=== PATIENT | male | born 1970 | race Caucasian/White ===

== ENCOUNTER → 2023-09-25 12:39 | Outpatient (REF) | payer BC, SELFPAY | LOC: HWRAD 12:39 | PROVIDERS: ATTENDING PHYSICIAN Registered Nurse; FAMILY PHYSICIAN Internal Medicine | DX: J18.9 Pneumonia, unspecified organism (principal) | CPT/HCPCS: 71046 ==

== ENCOUNTER 2024-08-31 09:22 | Inpatient (IN) | payer BC, SELFPAY ==
[2024-08-31] VITALS (18 sets, daily range): BP systolic 100–139; BP diastolic 46–92; PULSE 27; BMI 31.5
[2024-08-31] MEDS: ATROPINE 0.1 MG/ML SYRINGE 1 MG IV ×2 (07:18→07:26)
--- NOTE | 2024-08-31 07:25 | ED.GENMED ---
History of Present Illness
General
Chief Complaint: Heart Rate Problem
Source: patient and ambulance crew
Exam Limitations: none
Time Seen by Provider: 08/31/24 07:24
Nursing documentation reviewed up to this point in time: agreed with
History of Present Illness
History of Present Illness:
54-year-old male presents emergency room via EMS due to syncope episode when he went to the bathroom. He had some chest tightness that went away, but does not feel good, and felt diaphoretic. EMS performed EKG with heart rate in the 30s revealing
complete heart block. He has not take any medications, except for an inhaler. EKG sent via EMS, cardiology contacted prior to patient's arrival.
Past History
Past History
ED Past Medical History: Asthma; Negative IDDM
ED Past Surgical History: Negative Cardiac
Social History
Tobacco: Non-smoker
Alcohol: None
Drug: None
Personal:
Living: with family
Employment: Employed
Family History
Family History: Other
Review of Systems
Review of Systems
Allergies reviewed?: Yes
All Other Systems: Not applicable
Constitutional: Reports no symptoms
EENT: Reports no symptoms
Respiratory: Reports no symptoms
Cardiac: Reports chest pain, diaphoresis and syncope
ABD/GI: Reports no symptoms
: Reports no symptoms
Musculoskeletal: Reports no symptoms
Skin: Reports no symptoms
Neurological: Reports no symptoms
Endocrine: Reports no symptoms
Hematologic/Lymphatic: Reports no symptoms
Psychiatric: Reports no symptoms
Phy Exam
Physical Exam
Physical Exam:
Physical Exam
General: Appears uncomfortable
Neck: supple. no meningeal signs. normal posterior pharynx
Heart: s1/s2 , bradycardia, no murmur. equal radial
pulses.
HEENT: Pupils equal round reactive to light, EOMI
Lungs: no acute respiratory distress. clear bilaterally
Abdomen: normal bowel sounds. not tender. no CVAT
Neuro: alert and oriented. no focal neurological deficits cranial nerves II through XII intact
Skin: no rash
Psychiatric: well kept. interactive and cooperative
Extremities: no edema. no calf tenderness. negative homans. good distal pulses
Course
Orders/Labs/Results
Orders:
Orders
08/31/24 07:14
EKG [Electrocardiogram (*1)] Stat
Reason for Study: Bradycardia / Tachycardia
EKG- Treatment ONCE
08/31/24 07:25
Atropine Sulfate [Atropine 0.1 mg/ml Syringe] 1 mg IV NOW STA
Atropine Sulfate [Atropine 0.1 mg/ml Syringe] 1 mg IV NOW STA
08/31/24 07:26
DOPamine 400 MG/D5W 250 ML [DOPamine 400 MG] 400 mg in 250 ml IV NOW
Initial dose in mcg/kg/min, then titrate:: 5
Titrate to keep:: Heart Rate
Keep Heart Rate (bpm) greater than:: 50
Titrate by mcg/kg/min:: 1-2 mcg/kg/min
Frequency of titrations (minutes):: 15
Maximum dose in ICU in mcg/kg/min:: 20
Maximum dose in IMU in mcg/kg/min:: 10
Begin to taper infusion when:: Remained at goal for 4hrs
Taper by mcg/kg/min:: 1-2 mcg/kg/min
Frequency of taper (minutes) if patient maintains goal:: 30
Taper to off?: Yes
If infusion off & no longer maintaining goal:: Contact Provider
08/31/24 07:33
Complete Blood Count/With Diff Urgent
Comprehensive Metabolic Panel Urgent
Magnesium Urgent
PTT Urgent
TSH Urgent
Troponin I Urgent
08/31/24 07:41
Heparin 1000 Units/500 ml [Heparin] 1,000 units in 500 ml .ROUTE .STK-MED
Heparin Sodium,Porcine/Ns/Pf [Heparin 2000 Units/1000 ml] 2,000 unit in 1,000 ml .ROUTE .STK-MED
Lidocaine HCl/Pf [Xylocaine-Mpf 1% Vial] 100 mg .ROUTE .STK-MED ONE
08/31/24 07:44
Aspirin Chewable [Low Strength Aspirin] 324 mg .ROUTE .STK-MED ONE
08/31/24 07:47
Aspirin Chewable [Low Strength Aspirin] 324 mg PO NOW STA
Aspirin Chewable [Low Strength Aspirin] 81 mg .ROUTE .STK-MED ONE
08/31/24 07:50
Fentanyl Citrate/Pf [Sublimaze] 100 mcg .ROUTE .STK-MED ONE
Heparin 10,000 units .ROUTE .STK-MED ONE
Midazolam HCl [Versed] 2 mg .ROUTE .STK-MED ONE
08/31/24 08:08
Nitroglycerin [Tridil] 1,500 mcg .ROUTE .STK-MED ONE
Verapamil Injectable [Isoptin/Verapamil Injection] 5 mg .ROUTE .STK-MED ONE
Abnormal Lab Results
08/31/24
07:33
Abs Immat Gran (auto) 0.1 H 10^3/uL
(0-0.05)
Absolute Neuts (auto) 6.8 H 10^3/uL
(1.4-6.5)
Absolute Monos (auto) 0.7 H 10^3/uL
(0.1-0.6)
APTT 22.9 L Sec
(23.4-35.0)
Potassium 3.4 L mmol/L
(3.5-5.1)
Glucose 180 H mg/dl
(70-99)
ALT 55 H U/L
(0-50)
08/31/24 07:33
08/31/24 07:33
Vital Signs
Initial and Last Documented VS:
Initial Vital Signs
Temp Pulse Resp BP Pulse Ox
97.8 F 32 18 100/60 99
08/31/24 07:15 08/31/24 07:15 08/31/24 07:15 08/31/24 07:15 08/31/24 07:15
Last Documented Vital Signs
Temp Pulse Resp BP Pulse Ox
97.8 F 32 18 118/50 99
08/31/24 07:15 08/31/24 07:15 08/31/24 07:15 08/31/24 07:47 08/31/24 07:47
MDM/Problems Addressed
Differential Diagnosis Includes:
Complete heart block, LA
MDM/Problems Addressed:
54-year-old male with complete heart block, dopamine drip, pacer pads in place. Multiple doses of atropine given without effect. Discussed with Dr. Foster, who took patient to Computer Programming Professor for transvenous pacemaker, with plans to place permanent
pacemaker later today.
*Pulse Oximetry
Patient hypoxic: no
*EKG
Interpreted by ED Provider?: Yes
EKG Intrepretation Date: 08/31/24
EKG Intrepretation Time: 07:16
Interpretation: abnormal
Comparison EKG: no comparison EKG present
Heart Rate: 28
Rate: bradycardiac
Rhythm: sinus tachycardia (with complete heart block)
[place]: normal axis
Interval: normal interval
QRS Pattern: right bundle branch block and other (LAFB)
Ischemia: non-specific ST changes
*Director Of National Sales Interpretation
Rate: bradycardiac
Interpretation: abnormal
Heart Rate: 30
Rhythm: sinus tachycardia (with complete heart block)
*Critical Care Note
Total Time (30-74mins, 75-104mins- exclusive of procedures): 30
comment:
Critical care statement: A total of 30 minutes of critical care time was provided for this patient. This includes management of unstable vital signs, evaluation of the patient at bedside, reviewing the patient's pertinent medical records, discussion
with consultants, review of old EKGs and review of pertinent medical records. This time with separate from time utilized to perform the aforementioned documented procedures
Patient Management
Social determinants of health affecting care: Living situation and Strong social support
Discussion with other providers: Personal Banker (cardiology Dr. Aguilar and Dr. Foster)
Escalation/DeEscalation of care consider admission/obs:
admit for pacemaker
ED Attending Note
-
Portions of this chart may have been created with voice recognition software.� Occasional wrong word or��sound alike� substitutions may have occurred due to the inherent limitations of voice recognition software.
Discharge Plan
Departure
Patient Disposition: CAN STERILIZER
Date of Disposition: 08/31/24
Time of Disposition: 07:27
Admit to: r and d lab technician
Presentation/result/management discussed w/ accepting MD/DO: Lauren, tooth cutter pinion
Patient with high blood pressure during this ER visit?: No
Condition: Serious
Discharge Problem:
Complete heart block
Prescriptions:
No Action
fluticasone propion-salmeterol [Advair Diskus] 100-50 mcg/dose blister with device
1 inh INHALATION R BID
Referrals:
UNKNOWN - PT NOT,INTERVIEWE [Family Provider] -
Interventions
Interventions:
*Risk Screen - Suicide Last Done: 08/31/24 07:15
*General Assessment Last Done: 08/31/24 07:15
*Neglect/Abuse Screening Last Done: 08/31/24 07:15
*ED COVID-19 Vaccine History Last Done: 08/31/24 07:29
Discharge Date and Time
Print Language: MONGOLIAN
[2024-08-31] MEDS: DOPamine 400 MG 250 IV (07:34)
[2024-08-31] MEDS: LOW STRENGTH ASPIRIN 324 MG PO (07:48)
[2024-08-31 07:50] LABS: % Basophils 0.6 % (0-2); % Eosinophils 1.9 % (0-6); % Immature Granulocytes 0.5 % (0-0.5); % Lymphocytes 23.3 % (20.5-51.1); % Monocytes 7.2 % (1.7-9.3); % Neutrophils 66.5 % (42.2-75.2); Absolute Basophils 0.1 10^3/uL (0-0.2); Absolute Eosinophils 0.2 10^3/uL (0-0.7); Absolute Immature Granulocytes 0.1 10^3/uL (0-0.05); Absolute Lymphocytes 2.4 10^3/uL (1.2-3.4); Absolute Monocytes 0.7 10^3/uL (0.1-0.6); Absolute Neutrophils 6.8 10^3/uL (1.4-6.5); Hematocrit 42.8 % (39.0-52.0); Hemoglobin 14.9 g/dL (13.0-18.0); Mean Corp Hgb Conc. 34.8 g/dL (33.0-37.0); Mean Corpuscular Hgb 29.8 pg (27.0-31.0); Mean Corpuscular Volume 85.6 fL (80.0-94.0); Mean Platelet Volume 10.2 fL (7.4-10.4); Nucleated Red Blood Cells % 0 % (-); Platelet Count 299 10^3/uL (130-400); Red Cell Dist. Width 12.3 % (11.5-14.5); White Blood Cell Count 10.2 10^3/uL (4.8-10.8)
[2024-08-31 07:59] LABS: APTT 22.9 Sec (23.4-35.0)
[2024-08-31 08:09] LABS: ALT (SGPT) 55 U/L (0-50); AST (SGOT) 45 U/L (17-59); Albumin 4.9 g/dl (3.5-5.0); Alkaline Phosphatase 63 U/L (38-126); Blood Urea Nitrogen 19 mg/dl (9-20); Calcium 9.3 mg/dl (8.4-10.2); Carbon Dioxide 23 mmol/L (22-30); Chloride 102 mmol/L (98-107); Estimated Creatinine Clearance 83 ml/min; Glucose 180 mg/dl (70-99); Magnesium 2.2 mg/dl (1.6-2.3); Potassium 3.4 mmol/L (3.5-5.1); Sodium 138 mmol/L (135-145); Total Bilirubin 0.8 mg/dl (0.2-1.3); Total Protein 7.6 g/dl (6.3-8.2); eGFR > 60.00
[2024-08-31 08:20] LABS: Troponin I < 0.012 ng/ml
--- NOTE | 2024-08-31 08:29 | HPS.HSE ---
Family Physician
-
Family Physician: Shante Rod NP
Cardiology: None prior to admission, will follow with Dr. Foster/ISMAEL
Chief Complaint
-
dizziness, chest pain
History of Present Illness
54 y/o white male, PMH asthma, anxiety, herpes simplex. Non smoker, social drinker. Father has PPM placed approx 15 years ago for what he says was bradycardia.
Pt presented to ER this morning via EMS after a near syncopal event in the bathroom. Recent history is that he decided to exercise last evening, and developed some chest pressure/muscle aches after he was done. This lasted approx 30-40 mine and
resolved. This morning, he walked to the bathroom and was very dizzy and lightheaded, some associated nausea, unable to stand, collapsed to his knees. He did not lose consciousness but felt that he was close. EMS was called and EKG revealed complete
heart block. He was brought to ED. Troponin normal, mild hypokalemia (3.4) and hyperglycemia (180) but labs otherwise WNL. He was brought urgently to laboratory analyst for angiography and possible temp wire placement.
Medical History
Past Medical History
Past Medical History: Reports Asthma
Additional Past Medical History:
Anxiety, herpes simplex
Past Surgical History: Reports Other
Additional Past Surgical History:
Left inguinal hernia repair (2012), Vasectomy (2011)
Social History
Tobacco: Non-smoker
Alcohol: Occasional
Drug: None
Personal:
Living: With Family
Employment: Employed
Family History
Family History: Cancer, Hypertension and Other (hyperlipidemia; Father- SSS/bradycardia with PPM implant about 15 yrs ago)
Allergies / Home Medications
Allergies reflects when Allergies were last updated in [email or web address].
Home Medications with original date entered in [email or web address]
Allergy/Medication List:
Allergies
Allergy/AdvReac Type Severity Reaction Status Date / Time
No Known Allergies Allergy Verified 08/31/24 07:27
Home Medications
�Medication �Instructions �Recorded
fluticasone 100 mcg-salmeterol 50 1 inh inhalation R BID 08/31/24
mcg/dose blistr powdr for
inhalation (Advair Diskus)
Review of Systems
-
History Source: Patient
A 12 point ROS was completed and negative except as noted: Yes
Abdomen/GI: Reports Nausea
Neurological: Reports Dizzy and Weakness
Physical Exam
Vital Signs
Vital Signs
Temp Pulse Resp BP Pulse Ox
97.8 F 32 18 118/50 99
08/31/24 07:15 08/31/24 07:15 08/31/24 07:15 08/31/24 07:47 08/31/24 07:47
Physical Exam
General: Well Developed and No Apparent Distress
HEENT: NormoCephalic
Respiratory: Clear and Non Labored Respirations
Cardiac: S1/S2 and Bradycardia
GI: Soft and Non Tender
Musculoskeletal: No Edema
Skin: Warm and Dry
Neuro: AO x 3
Laboratory Results
-
08/31/24 07:33
08/31/24 07:33
Laboratory Results
APTT 22.9 Sec (23.4-35.0) L 08/31/24 07:33
Total Bilirubin 0.8 mg/dl (0.2-1.3) 08/31/24 07:33
AST 45 U/L (17-59) 08/31/24 07:33
ALT 55 U/L (0-50) H 08/31/24 07:33
Alkaline Phosphatase 63 U/L (38-126) 08/31/24 07:33
Troponin I < 0.012 ng/ml 08/31/24 07:33
Data Reviewed
-
Medical Tests (Nuc Med, Echo, EKG etc): Image Personally Visualized and interpreted, Report Reviewed by me and Discussed with Physician
Lab Data: Labs Reviewed by me
Old Records: Reviewed
Impression/Plan
-
PCP: Shante Rod NP
CDY: none prior to admission, to follow with ISMAEL/Rasta Foster MD
54 y/o white male, PMH asthma, anxiety, herpes simplex. Non smoker, social drinker. Father has PPM placed approx 15 years ago for what he says was bradycardia.
Pt presented to ER this morning via EMS after a near syncopal event in the bathroom. Recent history is that he decided to exercise last evening, and developed some chest pressure/muscle aches after he was done. This lasted approx 30-40 mine and
resolved. This morning, he walked to the bathroom and was very dizzy and lightheaded, some associated nausea, unable to stand, collapsed to his knees. He did not lose consciousness but felt that he was close. EMS was called and EKG revealed complete
heart block. He was brought to ED. Troponin normal, mild hypokalemia (3.4) and hyperglycemia (180) but labs otherwise WNL. He was brought urgently to laboratory analyst for angiography and possible temp wire placement.
IMPRESSION:
Near Syncope
Complete heart block
Chest pain
Hypokalemia
Hyperglycemia
Asthma
Anxiety
Herpes Simplex
PLAN:
Urgent C to eval for CAD
Likely temp wire for now and possible pacemaker implant later today
Check TSH, Lyme Titer
Echo today
Cardiac MRI today
monitor on tele
replace K post cath
check HgbA1C in AM- elevated glucose noted
followup at [facility] at d/c
[2024-08-31 08:39] LABS: TSH 1.67 uIU/ml (0.47-4.68)
--- NOTE | 2024-08-31 08:53 | ITS.CL.CATH ---
[employer] Worker - Catheterization
Cardiac Catheterization
Procedure Report:
LEFT HEART CATHETERIZATION
Date of Procedure: August 31, 2024
Referring: [facility] Emergency Department
PROCEDURES:
1. Venous access with placement of a 7 Turkmen sheath using ultrasound guidance
2. Left heart catheterization with coronary and single-plane left ventriculography
INDICATION: This is a 54-year-old gentleman with no prior cardiac history who presented to [facility] with a very unusual story. He reports that he was in his normal state of health throughout the day prior to admission. Last evening he
exercised with some free weights and after exercising noted a sensation in his chest like a muscle ache or pull. He awoke this morning his chest discomfort had completely resolved, however, he felt quite poorly and was nauseated and diaphoretic.
He went to the restroom and was weak falling to the ground and unable to stand. He was somewhat disoriented and called for his who called 911. His prehospital electrocardiogram was notable for complete heart block. Upon arrival to the
emergency department he received atropine. Given the history of chest discomfort like a muscle strain, the decision was made to refer for coronary angiography and possible temporary wire placement for management of complete heart block.
ACCESS: Right radial artery, 6 Turkmen sheath using ultrasound guidance and 7 Turkmen right common femoral venous sheath.
Ultrasound was utilized for vascular access. The radial artery was visualized under ultrasound, and the vessel was patent and pulsatile. An image was stored permanently in the patient's medical record. Under direct ultrasound guidance, a 6 Turkmen
sheath was inserted into the artery using a micropuncture kit through a modified Seldinger technique. Ultrasound guidance was then utilized to obtain access in the right common femoral vein and a 7 Turkmen sheath was inserted
HEMODYNAMICS : (mmHg): NOTE patient
AO (s/d) : 99/70
LV (s/d) : 123/12
LVEDP : 17
CORONARY FINDINGS
DOMINANCE: Right
LEFT MAIN: Normal
LEFT ANTERIOR DESCENDING: The LAD arises normally from the left main and runs in the anterior interventricular groove. The LAD is widely patent but tapers to a small caliber vessel as it approaches the apex.
CIRCUMFLEX: The circumflex is a medium caliber nondominant vessel supplying a single large bifurcating obtuse marginal branch and terminating in a small distal obtuse marginal branch. Only minor irregularities are noted.
RIGHT CORONARY ARTERY: The right coronary artery is a dominant vessel that is widely patent over its course. The PDA is patent. The posterolateral branch is large and patent
VENTRICULOGRAPHY: Left ventriculography was performed in an BERKOWITZ projection. The digital single-plane left ventricular ejection fraction is visually estimated at 50% with no regional wall motion abnormalities
RADIATION SUMMARY: Fluoro Time (min): 8.4, Dose (mGy): 401.6, DAP (Gy.cm2) : 38.5
Closure Device: TR band, right radial artery and manual pressure for right common femoral vein
CONCLUSIONS
1. Nonobstructive coronary disease
2. Complete heart block : Currently conducting 1:1
RECOMMENDATIONS
1. Discussed with Dr. Gerard. Will check TSH, Lyme titer, echocardiogram, and cardiac MRI for structure and function.
Copy to: Dr. Rao Foster, REYES Dalal
[2024-08-31] MEDS: ATIVAN 0.5 MG PO (11:42)
--- NOTE | 2024-08-31 11:45 | PTCARENOTE ---
Rec'd pt from manager labor delivery. AOX3 and pleasant. Tele- SR w/ BBBC. Pt has no complaints at this time. Activity restrictions verbalized to pt. Verbalizes understanding. R nacho and R angelia are c/d/i. OOB w/ RN assist. Pt tolerated. Oriented to room. Call
scar w/in reach.
[2024-08-31 11:54] LABS: Troponin I 0.026 ng/ml
--- NOTE | 2024-08-31 12:36 | CM ---
Chart reviewed. Patient is independent of ADLS, lives with his in a 2 [address], 0 VLADIMIR, 0 DME. Plan is for the patient to return home. CM to follow
--- NOTE | 2024-08-31 12:51 | PTCARENOTE ---
PO Ativan administered to pt pre MRI. Pt sent down to MRI via stretcher. Pt unable to complete MRI d/t anxiety. Pt returned to floor and reports that he had 'a bad experience as a kid feeling claustrophobic.'
[2024-08-31] MEDS: TYLENOL 650 MG PO ×2 (13:17→20:55)
--- NOTE | 2024-08-31 14:27 | W.PN.UPDATE ---
Update Note
Progress Note Update
Had a detailed discussion with patient and regarding his paroxysmal AV block. He had approximately 3 hours of symptoms which correlates to complete heart block and a right bundle branch escape in the low 30s. He had spontaneous recovery of
conduction and left heart catheterization demonstrating normal coronaries and normal ejection fraction on LV gram. He does have an echo pending today. Unfortunately he cannot tolerate MRIs throughout his lifetime and again today despite attempts
at sedation. I offered him another chance to try tomorrow with an increased dose of Ativan and he tells me he would not be able to tolerate and as such we deferred on proceeding for retry at the MRI. At this point I would like to perform
diagnostic workup to rule out viral myocarditis or sarcoidosis but some of these tests would then need to be performed as an outpatient with cardiac PET. We will send a serum RONA level, Lyme titer, TSH although I think he has a very low likelihood
of having systemic borreliosis. Reviewed his prior chest x-ray from greater than 1 year ago without evidence of hilar lymphadenopathy.
-Will check echo today to assess EF.
I described pacemaker implantation at the left side to patient and in detail including a 1 of thousand risk of [place] stroke and a 1% risk of pneumothorax tamponade infection or bleeding. Both are amenable to proceed to procedure tentatively
can consider Friday to Friday timeframe depending upon results of workup. We also discussed in detail that given he has paroxysmal AV block it is possible that he will not require pacing or only minimal pacing for quite some time. He
understands and agrees to proceed and we tentatively placed him on the schedule for tomorrow for dual-chamber pacemaker implantation. I took time to answer all questions of patient and .
[2024-08-31] MEDS: KCL 40 MEQ PO (14:53)
[2024-08-31 17:59] LABS: Troponin I 0.032 ng/ml
--- NOTE | 2024-08-31 21:15 | PTCARENOTE ---
Rec'd pt at change of shift. Pt AAO*3, in SR with RBBB on TELE monitor, and VSS. Pt reported mild headache and PRN Tylenol given as ordered. Pt agreed to NPO status at midnight. Pt resting with call abbott in reach. Plan of care ongoing.
See MAR and pt flowchart for full assessment and pt care.
[2024-08-31 23:11] LABS: Troponin I 0.036 ng/ml
[2024-09-01] VITALS (11 sets, daily range): BP systolic 130–147; BP diastolic 79–99; BMI 30.8
[2024-09-01] MEDS: NON-FORMULARY ITEM INH (00:44)
[2024-09-01 06:09] LABS: Hematocrit 40.6 % (39.0-52.0); Hemoglobin 14.1 g/dL (13.0-18.0); Mean Corp Hgb Conc. 34.7 g/dL (33.0-37.0); Mean Corpuscular Hgb 29.7 pg (27.0-31.0); Mean Corpuscular Volume 85.7 fL (80.0-94.0); Mean Platelet Volume 10.3 fL (7.4-10.4); Platelet Count 211 10^3/uL (130-400); Red Blood Cell Count 4.74 10^6/uL (4.70-6.10); Red Cell Dist. Width 12.2 % (11.5-14.5); White Blood Cell Count 5.9 10^3/uL (4.8-10.8)
[2024-09-01 06:37] LABS: Troponin I 0.035 ng/ml
[2024-09-01 06:38] LABS: Blood Urea Nitrogen 15 mg/dl (9-20); Calcium 9.4 mg/dl (8.4-10.2); Carbon Dioxide 24 mmol/L (22-30); Chloride 105 mmol/L (98-107); Estimated Creatinine Clearance 110 ml/min; Glucose 112 mg/dl (70-99); HDL Cholesterol 41 mg/dl; LDL Cholesterol, Calculated 107 mg/dl; Potassium 4.3 mmol/L (3.5-5.1); Sodium 138 mmol/L (135-145); Total Cholesterol 174 mg/dl (50-199); Triglyceride 134 mg/dl (10-149); Very Low Density Lipoprotein 26 mg/dl (0-30); eGFR > 60.00
[2024-09-01] MEDS: NON-FORMULARY ITEM 1 MCG INH (07:40)
[2024-09-01 09:27] LABS: Glycohemoglobin (HgbA1c) 5.5 % (4.0-5.6)
[2024-09-01] MEDS: TYLENOL 650 MG PO ×2 (09:52→18:05)
--- NOTE | 2024-09-01 11:56 | PTCARENOTE ---
Pt is AOx3, complains of headache, given PRN medication as ordered. Independent OOB. SR on tele monitor, VSS. NPO for PPM today. Call abbott within reach.
--- NOTE | 2024-09-01 12:35 | W.PN.UPDATE ---
Update Note
Progress Note Update
Briefly, patient is very pleasant 54-year-old male with a past medical history significant for asthma, anxiety who presented with sensation of lightheadedness, dizziness, nausea, mild shortness of breath. There was no reported loss of consciousness
by patient or documentation. Patient was noted to be in complete heart block. Patient symptoms correlated with his complete heart block. Patient has baseline right bundle branch block and left anterior fascicular block. Patient had spontaneous
return of AV synchrony. Patient is not on any AV nisha blocking agents. Patient has no family history of sudden cardiac , channelopathy. Patient underwent left heart catheterization which demonstrated nonobstructive coronary disease.
Patient underwent echocardiogram which demonstrated normal heart function, mild LVH, normal RV size and function, no significant valvular disease, mildly dilated aortic root. No regional wall motion abnormalities were noted. Patient was scheduled
for cardiac MRI however patient unable to tolerate cardiac MRI. Patient had thorough discussion as documented by Dr. Corbin Gerard regarding the importance of cardiac MRI for assessment of scar and other possible etiology for paroxysmal complete
heart block. Patient reported unable to tolerate and refusing test. Lab work including Lyme titer ordered as well as RONA level which are currently pending. Per discussion with Dr. Gerard, patient planned for elective outpatient PET scan. In the
short-term, due to patient's symptomatic paroxysmal complete heart block, patient to benefit from implantation of a dual-chamber pacemaker. Conduction disease likely infranodal making likelihood of worsening complete heart block possible.
Additionally, patient has baseline conduction disease with a right bundle branch block and left anterior fascicular block. Following discussion regarding disease process, we discussed pacemaker implantation. We discussed pacemaker indications and
device implant in detail. For implant there is an approximate 1:1000 risk of [place]/stroke/ and a 1% risk of pneumothorax/tamponade/infection/bleeding. We also discussed post procedure implant restrictions including positions to avoid with implant
arm for first six weeks after implant as well as driving restrictions. Patient and verbalized understanding and agreed with plan. We discussed that at this current juncture, there appears to be no indication for increased sudden cardiac
risk given available testing and lack of MRI and patient may develop need for upgrade of device in the future, patient and verbalized understanding and agreed with this plan. I took time to answer all questions. Patient remains n.p.o.,
consent form signed.
--- NOTE | 2024-09-01 15:35 | PTCARENOTE ---
Pt left for shop laborer for PPM. Report given to shop laborer RN. at bedside.
--- NOTE | 2024-09-01 17:38 | PTCARENOTE ---
Pt returned from clinical laboratory technician. Left arm immbolizer in place and dressing CDI. pt educated on restrictions and expected OOB time. updated and at bedside. Call abbott within reach.
--- NOTE | 2024-09-01 18:15 | ITS.CL.PACE ---
Supervisor Tubing - Pacemaker Implant
Pacemaker Implant
Procedure Report:
Primary Care: Shante Rod NP
Primary Traffic Control Operator: Dr Foster/ISMAEL
Procedure Date: 09/01/2024
Name of procedure:
1. Placement of a dual-chamber pacemaker with left bundle area pacing lead for conduction system pacing
2. Subclavian venography
History:
1. Patient is a pleasant 54-year-old male without a significant past medical history aside from asthma and anxiety who experienced paroxysmal complete heart block. Patient has a right bundle branch block and left anterior fascicular block.
2. Please refer to H&P for complete history.
Indication:
Symptomatic paroxysmal complete heart block
Methods:
After informed consent was obtained, the patient was brought to the EP laboratory in a postabsorptive, nonsedated state. Peripheral IV access was established. Prophylactic antibiotics were administered prior to incision. Continuous ECG, blood
pressure, and pulse oximetry were initiated. Cardioversion patch electrodes were placed on the patient's chest and back. A grounding patch was applied to the skin. Sedation was administered by anesthesia services.
In order to define the extrathoracic portion of the subclavian vein and exclude significant venous obstruction or anomalous anatomy, subclavian venography was performed prior to the procedure. Using the patient's left peripheral IV, contrast was
injected and images were recorded. The left subclavian vein and SVC were found to be widely patent.
The left chest was prepared and draped in a sterile fashion. A time-out was performed. Local anesthesia was injected in the subcutaneous tissue in the infraclavicular area. An incision was made medial to the deltopectoral groove. The subcutaneous
tissue was dissected the level of the prepectoral fascia. A subcutaneous pocket was created. Under fluoroscopic guidance and with the assistance of the images from the venogram, 2 separate venipunctures were made using micropuncture and modified
Seldinger technique. These were performed in the extrathoracic portion of the subclavian vein. Guidewires were passed and two peel-away sheaths were placed, and used to advance leads into the circulation.
Fluoroscopy was used to determine likely anatomic site for left bundle branch pacing. The Medtronic C315 sheath was used to deliver the Medtronic 3830 Selectsecure pacing lead with the helix exposed just exposed from the sheath tip during continuous
monitoring when pacemapping the septum during gentle clockwise rotation to obtain a paced QRS morphology of a W pattern in lead V1. Once the suspected optimal site was identified, lead deployment was performed with several rapid rotations as paced
QRS morphology was intermittently monitored until a paced QRS complex in lead V1 demonstrated development of an R wave (qR or rSR). Unipolar pacing impedance dropped by approximately 100-200 ohms suggesting it had reached the left ventricular
subendocardial. Stable VEgm injury current is present throughout lead position and at end of case. Final unipolar pacing impedance is 1060 Ohms. Unipolar pacing threshold is stable at 1.0 V @ 0.4 ms. The patient had pre-existing right bundle branch
block morphology at baseline. Final conduction system paced QRS complex duration is 131 ms, LVAT is 58 ms, and peak V5 -> peak V1 timing is 69 ms. The C315 sheath was slit under fluoroscopy ensuring lead position and stability.
Next, the right atrial lead was positioned in the right atrial appendage. Adequate sensing and pacing parameters were found, and no diaphragmatic stimulation was seen with high-output pacing. Both sheaths were split, and the leads were secured to
the fascia with Ethibond ties.
The pocket was flushed with antibiotic solution and hemostasis was assured. The generator was connected to the leads and placed inside the pocket. The device was sutured to the fascia. Antibiotic envelope was used. Floseal was applied. The wound
was closed with 3 running layers of absorbable suture, and steri-strips were applied. Dressing applied over steri-strips in standard fashion.
Following the procedure, the patient was taken to the recovery area in stable condition. A chest x-ray to be obtained post procedure as routine.
Lead parameters and device programming:
- RA Lead (Medtronic, Model 5076, # [id number]): Sensing 4.6 mV, Pacing threshold 0.5 V at 0.4 ms, Imp 495 ohm
- RV Lead (Medtronic, Model 3830, #[id number]): Sensing 4.0 mV (bipolar), Pacing threshold 0.75 V at 0.4 ms, Imp 850 ohm
- Device: Medtronic, Model W1DR01 pacemaker (#[id number]), programmed [id number]�[id number], mode switch on, lower rate 60, upper tracking rate 130 ppm
Conclusions:
1. Successful placement of a dual-chamber pacemaker with conduction system pacing (LBBAP)
2. Subclavian venography
Recommendations:
1. Return to patient room
2. Chest x-ray this evening, [facility] in a.m.
3. IV antibiotics while the patient is admitted.
4. OK to resume home medications as indicated
5. Pressure dressing to be removed in AM, aquacell to remain until wound check
6. Follow-up will be arranged in the office in 7-10 days post-discharge
7. PET scan as outpatient
Jesus Rivera DO, FACC
Clinical Cardiac Medical Records Analyst
cc: Shante Rod NP; Dr Rao Foster
[2024-09-01] MEDS: NON-FORMULARY ITEM 100 MCG INH (20:05)
[2024-09-01] MEDS: ROXICODONE 5 MG PO (21:51)
[2024-09-01] MEDS: MELATONIN 5 MG PO (21:51)
[2024-09-01] MEDS: ANCEF 5 IV (21:52)
--- NOTE | 2024-09-01 22:57 | PTCARENOTE ---
Assumed care of the pt @ 1900. Pt with new PPM site dressing c/d/i Rt radial and rt groin puncture sites c/d/i + distal pulses. Immobilizer to left arm in use. Pt c/o pain left chest procedure site. Cassi MILLER notified and ordered Oxycodone. See
SEP. SR on the monitor VSS. Pt is independent in the room. Call [facility] within reach.
[2024-09-02 03:09] VITALS: BP 144/92
[2024-09-02] MEDS: ROXICODONE 5 MG PO ×2 (03:28→08:06)
[2024-09-02 03:45] LABS: Hematocrit 40.4 % (39.0-52.0); Hemoglobin 13.9 g/dL (13.0-18.0); Mean Corp Hgb Conc. 34.4 g/dL (33.0-37.0); Mean Corpuscular Volume 87.1 fL (80.0-94.0); Mean Platelet Volume 10.4 fL (7.4-10.4); Platelet Count 223 10^3/uL (130-400); Red Blood Cell Count 4.64 10^6/uL (4.70-6.10); Red Cell Dist. Width 12.3 % (11.5-14.5); White Blood Cell Count 7.8 10^3/uL (4.8-10.8)
[2024-09-02 04:04] LABS: Blood Urea Nitrogen 16 mg/dl (9-20); Calcium 8.9 mg/dl (8.4-10.2); Carbon Dioxide 26 mmol/L (22-30); Chloride 103 mmol/L (98-107); Estimated Creatinine Clearance 110 ml/min; Glucose 116 mg/dl (70-99); Magnesium 2.2 mg/dl (1.6-2.3); Potassium 4.1 mmol/L (3.5-5.1); Sodium 137 mmol/L (135-145); eGFR > 60.00
[2024-09-02] MEDS: ANCEF 5 IV (05:35)
[2024-09-02 06:00] VITALS: BMI 30.6
[2024-09-02 07:58] VITALS: BP 154/89
[2024-09-02] MEDS: NON-FORMULARY ITEM 1 MCG INH (08:03)
[2024-09-02 08:22] LABS: Glucose - Point of Care 124 mg/dl (70-99)
--- NOTE | 2024-09-02 09:04 | W.PN.CARDCBS ---
Addendum entered and electronically signed by Corbin Gerard MD 09/02/24 10:43:
Patient seen and examined
agree with REINSURANCE CLERK note and assessment
agree with REINSURANCE CLERK plan
Telemetry reviewed with appropriate atrial and ventricular sensing
Chest x-ray reviewed demonstrating leads in the right atrial appendage and a left bundle branch area lead in the mid septum without pneumothorax
EKG reviewed
Examination:
Alert and x 3
Nonfocal neurological
Left deltopectoral groove site clean dry and intact
No hematoma device site
Cor regular
Remainder as per REINSURANCE CLERK note
IMPRESSION:
Near Syncope
Complete heart block
Chest pain
Hypokalemia
Hyperglycemia
Asthma
Anxiety
Herpes Simplex
PLAN:
site stable, mild inc pain
TSH normal, Lyme Titer still pending but denies exposure
Echo NL EF mild LVH, no valve dz
unable to tolerate cardiac MRI d/t claustrophobia and will consider cardiac PET as outpt
Activity restrictions reviewed
Inc check 1 week
home today
Original Note:
Today's Communication / Plan
-
stable for d/c home
Impression / Plan
-
PCP: Shante Rod NP
CDY: none prior to admission, to follow with [facility]/Rasta Foster MD
54 y/o white male, PMH asthma, anxiety, herpes simplex. Non smoker, social drinker. Father has PPM placed approx 15 years ago for what he says was bradycardia.
Pt presented to ER this morning via EMS after a near syncopal event in the bathroom. Recent history is that he decided to exercise last evening, and developed some chest pressure/muscle aches after he was done. This lasted approx 30-40 mine and
resolved. This morning, he walked to the bathroom and was very dizzy and lightheaded, some associated nausea, unable to stand, collapsed to his knees. He did not lose consciousness but felt that he was close. EMS was called and EKG revealed complete
heart block. He was brought to ED. Troponin normal, mild hypokalemia (3.4) and hyperglycemia (180) but labs otherwise WNL. He was brought urgently to labor specialist for angiography and possible temp wire placement.
IMPRESSION:
Near Syncope
Complete heart block
Chest pain
Hypokalemia
Hyperglycemia
Asthma
Anxiety
Herpes Simplex
PLAN:
2/ LHC with normal coronary arteries
2/ post DC PPM Medtronic
site stable, mild inc pain
CXR no PTX
SR Bifascicular block, with occasional Apacing
TSH normal, Lyme Titer still pending but denies exposure
Echo NL EF mild LVH, no valve dz
unable to tolerate cardiac MRI d/t claustrophobia possibly PET as outpt
Activity restrictions reviewed
Inc check 1 week
home today
Progress Note - Chemical Treatment Operator
Subjective
Date of Service: September 02, 2024
mild inc pain, no sob
Objective
Labs:
09/02/24 03:24
09/02/24 03:24
Labs
Hgb 13.9 g/dL (13.0-18.0) 09/02/24 03:24
Hct 40.4 % (39.0-52.0) 09/02/24 03:24
Plt Count 223 10^3/uL (130-400) 09/02/24 03:24
APTT 22.9 Sec (23.4-35.0) L 08/31/24 07:33
Sodium 137 mmol/L (135-145) 09/02/24 03:24
Potassium 4.1 mmol/L (3.5-5.1) 09/02/24 03:24
BUN 16 mg/dl (9-20) 09/02/24 03:24
Creatinine 0.9 mg/dL (0.7-1.3) 09/02/24 03:24
Glucose 116 mg/dl (70-99) H 09/02/24 03:24
Troponins
08/31/24 08/31/24 08/31/24
07:33 11:17 17:25
Troponin I < 0.012 0.026 D 0.032
08/31/24 09/01/24
22:34 05:44
Troponin I 0.036 H* 0.035 H*
Vital Signs and I&O:
Vital Signs
Temp Pulse Resp BP Pulse Ox
98.2 F 84 14 144/92 96
09/02/24 08:00 09/02/24 08:04 09/02/24 08:04 09/02/24 03:09 09/02/24 08:00
Vital Signs
Temp Pulse Resp BP Pulse Ox
98.2 F 84 14 144/92 96
09/02/24 08:00 09/02/24 08:04 09/02/24 08:04 09/02/24 03:09 09/02/24 08:00
Intake & Output
08/31/24 09/01/24 09/02/24 09/03/24
06:59 06:59 06:59 06:59
Intake Total 1327 / 1327
Balance 1327 / 1327
Physical Exam
Physical Exam
NAD< AOX3
S1, S2, RRR
CTAB, non labored, no wheeze
SNTND Bsx4
L CW Dressing c/d/i, no HT< mildly tender
R rad c/d/i good pulse
--- NOTE | 2024-09-02 13:11 | W.DS.TRANS ---
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
-
Discharge Instructions:
Discharge Diagnosis/Procedures Heart block, near syncope
cardiac catheterization (08/31)
pacemaker implant (09/01)
Diet Regular
Driving Restrictions No driving for 1 week
Instructions:
Stand-Alone Forms: DC Instructions- Cath/EP Lab
DC Inst - Implanted Device
Changes to Home Medications: No
Discharge Medications:
DC Medications w/original date entered in [facility]
fluticasone 100 mcg-salmeterol 50 mcg/dose blistr powdr for inhalation (Advair Diskus) 1 inh inhalation R BID Lung/Breathing Issues 08/31/24
Home Medication Changes
Pending Results: Yes
Additional Pending Results:
RONA and lyme titer results
[2024-09-02 20:49] LABS: Angiotensin-1-converting Enzym 39 U/L (16-85)
[2024-09-04 04:39] LABS: Lyme Disease DNA by PCR Not Detected; Lyme Source Serum
== END 2024-09-02 11:06 | disposition home or self-care (01) | DRG 244 ==
LOC: IVU 09:22
PROVIDERS: Internal Medicine Cardiovascular Disease; Nurse Practitioner; ADMITTING PHYSICIAN Internal Medicine Interventional Cardiology; EMERGENCY PHYSICIAN Emergency Medicine
PROC: 4A023N7 Measurement of Cardiac Sampling and Pressure, Left Heart, Percutaneous Approach (ICD-10-PCS; 2024-08-31)
PROC: B211YZZ Fluoroscopy of Multiple Coronary Arteries using Other Contrast (ICD-10-PCS; 2024-08-31)
PROC: B215YZZ Fluoroscopy of Left Heart using Other Contrast (ICD-10-PCS; 2024-08-31)
PROC: 02H63JZ Insertion of Pacemaker Lead into Right Atrium, Percutaneous Approach (ICD-10-PCS; 2024-09-01)
PROC: 02HK3JZ Insertion of Pacemaker Lead into Right Ventricle, Percutaneous Approach (ICD-10-PCS; 2024-09-01)
PROC: 0JH606Z Insertion of Pacemaker, Dual Chamber into Chest Subcutaneous Tissue and Fascia, Open Approach (ICD-10-PCS; 2024-09-01)
DX: I44.2 Atrioventricular block, complete (principal); I25.10 Atherosclerotic heart disease of native coronary artery without angina pectoris; J45.909 Unspecified asthma, uncomplicated; E87.6 Hypokalemia; F41.9 Anxiety disorder, unspecified; B00.9 Herpesviral infection, unspecified; R73.9 Hyperglycemia, unspecified; Z82.49 Family history of ischemic heart disease and other diseases of the circulatory system; Z79.51 Long term (current) use of inhaled steroids
CPT/HCPCS: 33208; 71045; 76937; 80048; 80053; 80061; 82164; 82962; 83036; 83735; 84443; 84484; 85025; 85027; 85730; 87476; 93005; 93306; 93458; 94640; 96374; 96375; 96376; 99291; C1769; C1785; C1892; C1894; C1898; Q9967

== ENCOUNTER → 2024-10-05 12:50 | Outpatient (REF) | payer BC, SELFPAY | LOC: PET 12:50 | DX: I44.2 Atrioventricular block, complete (principal); R06.09 Other forms of dyspnea | CPT/HCPCS: 78431; A9555; J2785 ==